=== PATIENT | female | born 1975 | race African-American/Black ===

== ENCOUNTER → 2019-07-07 | Day surgery (SDC) | payer OTHER ==
--- NOTE | 2019-07-11 14:11 | PATH ---
Surgical Pathology Report Patient Name: BARBARA FLORES [facility]. Rec. #: [id number] /Age/Gender: 1975 (Age: 44) / F Account: [id number] Location: [facility] Taken: 07/07/2019 Received: 07/07/2019 Reported: 07/11/2019 Physicians: Bradley Miller M.D. Specimen(s) Received A: RIGHT BREAST SPECIMEN - WITH CALCIFICATIONS B: RIGHT BREAST SPECIMEN - WITHOUT CALCIFICATIONS Clinical History Nonpalpable lesion Mammographic findings: Microcalcification, suspicious Final Diagnosis A. BREAST, RIGHT, WITH CALCIFICATIONS, STEREOTACTIC CORE BIOPSY: BENIGN BREAST PARENCHYMA WITH DILATED DUCTS, ASSOCIATED AREAS OF CHRONIC INFLAMMATION, HISTIOCYTIC INFILTRATE, AND REACTIVE CHANGES CONSISTENT WITH CYST RUPTURE. MICROCALCIFICATIONS WITHIN STROMA AND CYST CONTENTS PRESENT. REMAINDER OF BREAST PARENCHYMA SHOWS STROMAL FIBROSIS, ADENOSIS, AND FOCAL USUAL DUCTAL HYPERPLASIA. B. BREAST, RIGHT, WITH CALCIFICATIONS, STEREOTACTIC CORE BIOPSY: BENIGN BREAST PARENCHYMA WITH STROMAL FIBROSIS, ADENOSIS, FOCAL CHRONIC INFLAMMATION, HISTIOCYTIC INFILTRATE, AND REACTIVE CHANGES CONSISTENT WITH CYST RUPTURE. RARE MICROCALCIFICATIONS PRESENT. Electronically Signed Danae Amor M.D. Gross Description A. Received in formalin labeled "right breast with calcification," are 6 santoyo-yellow, cylindrical portions of fibroadipose tissue ranging from 0.6-2.5 cm in length and averaging 0.3 cm in diameter. The specimens are entirely submitted in 2 cassettes. B. Received in formalin labeled "right breast without calcifications," are 2 santoyo-yellow, cylindrical portions of fibroadipose tissue measuring 0.7 and 2.2 cm in length and averaging 0.3 cm in diameter. The specimens are submitted in toto in one cassette. Time to formalin fixation: 5 minutes Total formalin fixation time: Approximately 6 hours. DL/07/07/2019 saudi/07/07/2019
== END | disposition home or self-care (01) ==
LOC: FMAMMOTONE 10:08
PROVIDERS: ATTEND Family Medicine
PROC: 0HBT3ZX Excision of Right Breast, Percutaneous Approach, Diagnostic (ICD-10-PCS; principal; 2019-07-07)
DX: N60.31 Fibrosclerosis of right breast (principal); N60.41 Mammary duct ectasia of right breast; N60.21 Fibroadenosis of right breast; N64.89 Other specified disorders of breast; R92.1 Mammographic calcification found on diagnostic imaging of breast
CPT/HCPCS: 19081; 76098-TC-FY; 87899; 88305-TC; A4648

== ENCOUNTER 2019-08-04 09:19 | Day surgery (SDC) | payer OTHER ==
[2019-08-03 15:44] VITALS: BMI 23.0
[2019-08-04 15:18] VITALS: BP 125/78; PULSE 78; TEMP 98
--- NOTE | 2019-08-12 20:38 | PATH ---
Surgical Pathology Report Patient Name: BARBARA FLORES [facility]. Rec. #: [id number] /Age/Gender: 1975 (Age: 44) / F Account: [id number] Location: [facility] Taken: 08/04/2019 Received: 08/04/2019 Reported: 08/12/2019 Physicians: Charla Barron M.D. Specimen(s) Received A: BONE MARROW BIOPSY B: BONE MARROW ASPIRATION SMEARS C: BONE MARROW BLOOD Clinical History Macrocytic anemia Final Diagnosis A-C.BONE MARROW, UNSPECIFIED SITE, SMEARS, CLOT AND BIOPSY: MINUTE QUANTITY OF NORMOCELLULAR FOR AGE MARROW SHOWS MATURING TRILINEAGE HEMATOPOIESIS AND NO EVIDENCE OF OVERT OR ADVANCED MYELODYSPLASIA, ACUTE LEUKEMIA, METASTATIC NEOPLASM, PLASMA CELL NEOPLASM OR LYMPHOMA. NORMAL CYTOGENETIC KARYOTYPING ANALYSIS RESULTS AND FISH STUDY FOR MDS PANEL ALL SHOWED NEGATIVE RESULTS. SEE COMMENT. Comment: Due to the minute quantity of sample observed, the overall findings many not be entirely sales representatives. Another adequately obtained marrow biopsy submitted for pathologic evaluation is suggested, if clinically indicated and feasible. This case was sent to Dr. Mele Diez from [place], [place] ([id number]) the diagnosis above reflects his opinion. FLOW CYTOMETRY performed and interpreted at [facility] ([id number]) shows the following: No immunophenotypic evidence of abnormal myeloid maturation, increased blast population or a lymphoproliferative disorder. Phenotype: There is a mixed population of maturing myeloid cells, B cells and T cells. No abnormal myeloid maturation is seen. There is no increase in CD34 positive blasts, and they comprise 0.1% of the total cells. The B-cells (4.7% of total) are polytypic and the T-cells (22.8% of total) show no raymond T-cell antigen deletion. The CD4:CD8 ratio is within normal limits. CD56+ and/or CD57+ T/NK-large granular lymphocytes are within normal limits (4.7% of total cells). The myeloid/neutrophilic elements represent 63.1% of total cells and CD14/CD64 positive monocytic elements represent 2.5% of total cells without aberrant expression. Eosinophils are adequate in number and represent 0.5% of total cells. A significant population of bright CD38 positive plasma cells is not identified. FLUORESCENCE IN-SITU HYBRIDIZATION [place] [facility] [place] [place][id number] shows the following: INTERPRETATION: MDS panel: 1. Negative for monosomy 5 and a deletion of CSF1R/RPS14 on the long arm of chromosome 5 at q33. 2. Negative for monosomy 7 and a deletion of MDFIC on the long arm of chromosome 7 at q31. 3. Negative for trisomy 8. 4. Negative for a deletion of PTPRT on the long arm of chromosome 20 at q12. CHROMOSOME ANALYSIS performed and interpreted at [facility] ([id number]) shows the following: RESULTS: 46, XX[20] Female karyotype INTERPRETATION: Normal female chromosome complement observed in all cells examined. There was no evidence of a chromosome abnormality within the limits of the technology utilized. See [facility] reports for additional details. Electronically Signed Danae Amor M.D. Gross Description A. Received in formalin labeled "bone marrow biopsy," is a 0.5 x 0.4 x 0.1 cm aggregate of santoyo-brown bone fragments admixed with a 2.3 x 1.5 x 0.3 cm aggregate of red-brown blood clot. The specimen is entirely submitted in 2 cassettes as follows: 1-bone fragments, following decalcification; 2-blood clot. B. Received are 12 bone marrow aspiration smear slides. C. Received are 2 green top tubes and 2 lavender top tubes of blood which are sent to [facility]
== END 2019-08-04 16:15 | disposition home or self-care (01) ==
LOC: JRADIR 09:19
PROVIDERS: ATTEND Internal Medicine Hematology & Oncology
PROC: 07DR3ZX Extraction of Iliac Bone Marrow, Percutaneous Approach, Diagnostic (ICD-10-PCS; principal; 2019-08-04)
DX: D64.9 Anemia, unspecified (principal)
CPT/HCPCS: 20225; 87899; 88300-TC; 88305-TC; 88311-TC; 88313-TC

== ENCOUNTER 2019-08-21 04:19 | Emergency (ER) | payer OTHER ==
[2019-08-21] MEDS ORDERED: diphenhydrAMINE HCL 25 MG CAPSULE (FP) PO ONE ×2 (04:36→04:47)
[2019-08-21] MEDS ORDERED: predniSONE 20 MG TABLET (UD) PO ONE (04:36)
[2019-08-21 04:41] VITALS: BP 149/94; PULSE 84; TEMP 97.1; BMI 21.9
--- NOTE | 2019-08-21 04:43 | PDOC ---
History of Present Illness - General Chief Complaint: Allergic Reaction Stated Complaint: FACIAL SWELLING History Source: Patient Exam Limitations: No Limitations - History of Present Illness Initial Comments: 44 year old female with PMH HTN, PCKD, liver cysts, meningioma (s/p resection x5 years ago), GERD, hiatal hernia presented to ED for left upper lip swelling since last night. Pt denied nausea, vomiting, shortness of breath, fever, sore throat, body aches, chills/sweats, cough, wheezing, chest tightness. Pt reported she is taking Lotrel (Amlodipine and Benazepril). ROS General: denied fever, chills, generalized weakness. HEENT: admitted to lip swelling. denied sore throat, rhinorrhea, ear pain. Cardiovascular: denied chest pain, palpitations, syncope, diaphoresis. Respiratory: denied shortness of breath, cough, sputum production, hemoptysis. Gastrointestinal: denied abdominal pain, nausea, vomiting, diarrhea, constipation, blood in stool. Genitourinary: denied dysuria, increased urinary frequency, hematuria, urinary incontinence, flank pain. Back: denied back pain. Musculoskeletal: denied joint pain, muscle pain, joint swelling. Neurological: denied headache, dizziness, numbness, tingling, weakness. Integumentary: denied rash, laceration, abrasion. Hematologic/Lymphatic: denied bruising or bleeding. PE Constitutional: Well-nourished, Well-developed, appearing stated age. HEENT: left upper lip swollen, no erythema. head is normocephalic, atraumatic. EOMI. PERRLA. no posterior pharyngeal erythema. no tonsillar swelling or exudates bilaterally. uvula midline. no peritonsillar swelling. no jaw tenderness or misalignment. good dentition. no facial erythema. Neck: supple. Full ROM. Cardiovascular: regular heart rhythm. Normal S1 and S2. no murmurs. no pericardial friction rub. Respiratory: clear to auscultation bilaterally. no crackles, rhonchi or wheezing. no stridor. Gastrointestinal: soft, flat, nontender. normal bowel sounds. no rebound, guarding, or masses. Extremities: peripheral pulses intact and equal. no lower extremity edema noted. Neurological: CN 2-12 grossly intact. moves all four extremities. Psych: awake, alert, oriented x3. follows commands. answers questions appropriately. Past History - Past Medical History Allergies/Adverse Reactions: Allergies Allergy/AdvReac Type Severity Reaction Status Date / Time Penicillins Allergy Intermediate Swelling Verified 08/21/19 04:36 cefazolin AdvReac Intermediate Swelling Verified 08/21/19 04:36 ? [place] AdvReac Mild Rash Uncoded 08/21/19 04:36 Home Medications: Ambulatory Orders Amlodipine Besylate/Benazepril [Lotrel 10-20 mg Capsule] 1 each PO DAILY Ergocalciferol [Vitamin D2] 50,000 unit PO MONTHLY 08/03/19 - Psycho Social/Smoking Cessation Hx Smoking Status: No Smoking History: Never smoked Have you smoked in the past 12 months: No Number of Cigarettes Smoked Daily: 0 Information on smoking cessation initiated: No Hx Alcohol Use: No Drug/Substance Use Hx: No Substance Use Type: None Hx Substance Use Treatment: No *Physical Exam - Vital Signs Last Vital Signs Temp Pulse Resp BP Pulse Ox 97.1 F L 84 16 149/94 100 08/21/19 04:20 08/21/19 04:20 08/21/19 04:20 08/21/19 04:20 08/21/19 04:20 Medical Decision Making - Medical Decision Making 44 year old female with above PMH presented to ED for evaluation of left upper lip swelling since last night, on PARTH inhibitor. Needs morning HTN medication. Initial Vital Signs Temp Pulse Resp BP Pulse Ox 97.1 F L 84 16 149/94 100 08/21/19 04:20 08/21/19 04:20 08/21/19 04:20 08/21/19 04:20 08/21/19 04:20 Afebrile. No tachycardia. No tachypnea. Hypertensive. No hypoxia on room air. Labs ordered: none Imaging ordered: none Amlodipine given. Valsartan given. Pt discharged, advised to F/U with PCP, she stated she has already texted them. Discharge - Discharge Information Problems reviewed: Yes Clinical Impression/Diagnosis: Lip swelling, Adverse reaction to PARTH inhibitor drug Condition: Stable Disposition: HOME - Admission No - Follow up/Referral Referrals: Charla Barron MD [Primary Care Provider] - - Patient Discharge Instructions Patient Printed Discharge Instructions: DI for Angioedema Additional Instructions: Follow up with your primary care doctor within 3 days regarding your Emergency Room visit. Your care is not complete until you follow up. Bring all paperwork given to you today to your appointment. Bring all medications you are taking. STOP TAKING LOTREL. Take Benadryl over the counter for swelling. Take as advised on label. I have sent a prescription to your pharmacy for Prednisone. Take as advised on label. Return to the Emergency Department for increasing swelling, increasing pain, chest pain, shortness of breath, vomiting, increasing rash, lightheadedness, or any other new, worsening or concerning symptoms. - Post Discharge Activity Work/Back to School Note: Back to Work
[2019-08-21] MEDS ORDERED: predniSONE 20 MG TABLET (UD) ONE (04:46)
--- NOTE | 2019-08-21 04:53 | PDOC ---
Attending Attestation - Resident Resident Name: Aida Marti - ED Attending Attestation I have performed the following: I have examined & evaluated the patient, The case was reviewed & discussed with the resident, I agree w/resident's findings & plan - HPI HPI: 08/21/19 04:51 Pt's lip swelled up after she took her lotrel (amlodipine/benazepril 10mg/20,g) Angioedema of left upper lip only. No tonhue or throat swelling and no wheeze and no voice change - Physicial Exam PE: 08/21/19 04:52 Normal exam other than swollen lip. - Medical Decision Making 08/21/19 04:53 Home with benadryl and prednisone. Pt will be given AM dose of amlodipine and diovan 08/21/19 04:56 Pt will fol[address]ow with Dr. Esteban
[2019-08-21] MEDS ORDERED: amLODIPine BESYLATE 10 MG TABLET (FP) PO ONE (04:55)
[2019-08-21] MEDS ORDERED: VALSARTAN 40 MG TABLET (FP) PO ONE (04:55)
[2019-08-21] MEDS ORDERED: amLODIPine BESYLATE 5 MG TABLET (FP) ONE (05:00)
== END 2019-08-21 06:45 | disposition home or self-care (01) ==
LOC: JER 04:19
DX: R60.0 Localized edema (principal); T46.4X5A Adverse effect of angiotensin-converting-enzyme inhibitors, initial encounter; Y92.038 Other place in apartment as the place of occurrence of the external cause; Z88.0 Allergy status to penicillin; Z88.1 Allergy status to other antibiotic agents; Z91.018 Allergy to other foods
CPT/HCPCS: 99283-25

== ENCOUNTER 2020-07-21 10:18 | Emergency (ER) | payer OTHER ==
[2020-07-21 10:24] VITALS: BP 133/89; PULSE 81; TEMP 98.2; BMI 23.2
[2020-07-21 11:32] LABS: BASO % 0.8 % (0-2.0); EOS % 0.8 % (0-4.5); HEMATOCRIT 30.9 % (32.4-45.2); HEMOGLOBIN 10.5 GM/dL (10.7-15.3); LYMPH % 31.5 % (8-40); MCH 32.7 pg (25.7-33.7); MCHC 33.9 g/dl (32.0-36.0); MEAN CELL VOLUME 96.4 fl (80-96); MEAN PLT VOLUME 8.7 fl (7.5-11.1); MONO % 5.9 % (3.8-10.2); PLATELET COUNT 195 K/MM3 (134-434); RDW 12.9 % (11.6-15.6); WHITE BLOOD COUNT 5.1 K/mm3 (4.0-10.0)
[2020-07-21 11:37] LABS: HCG,QUALITATIVE URINE Negative
[2020-07-21 11:48] LABS: EPI CELLS 6 /uL (0-25.1); HYALINE CASTS 2 /uL (0-3.1); URINE APPEARANCE CLOUDY; URINE BACTERIA 455 /uL (0-1359); URINE BILIRUBIN NEGATIVE (NEGATIVE); URINE COLOR YELLOW; URINE GLUCOSE (UA) NEGATIVE (NEGATIVE); URINE KETONE NEGATIVE (NEGATIVE); URINE LEUK ESTERASE 1+ (NEGATIVE); URINE NITRITE NEGATIVE (NEGATIVE); URINE PROTEIN TRACE (NEGATIVE); URINE RBC 26 /uL (0-23.9); URINE UROBILINOGEN 0.2 mg/dL (0.2-1.0); URINE WBC 154 /uL (0-25.8)
[2020-07-21 11:58] LABS: POTASSIUM 3.7 mmol/L (3.5-5.1)
[2020-07-21 12:00] LABS: ALBUMIN 3.9 g/dl (3.4-5.0); BLOOD UREA NITROGEN 15.7 mg/dL (7-18)
[2020-07-21 12:03] LABS: CREATININE 1.2 mg/dL (0.55-1.3)
[2020-07-21 12:05] LABS: BILIRUBIN,TOTAL 0.6 mg/dL (0.2-1); TOT PROT 7.8 g/dl (6.4-8.2)
[2020-07-21 12:19] LABS: YEAST NON SEEN (NEGATIVE)
== END 2020-07-21 12:29 | disposition home or self-care (01) ==
LOC: JERFT 10:18
DX: N30.01 Acute cystitis with hematuria (principal)
CPT/HCPCS: 36415; 76775-TC; 80053; 81003; 84703; 85025; 87086; 99284-25